=== PATIENT | male | born 1945 | race Caucasian/White ===

== ENCOUNTER 2019-08-31 07:11 | Day surgery (SDC) | payer OTHER ==
[~2019-08-31] VITALS: Ht 167.6 cm; Wt 71.0 kg
[~2019-08-31 07:11] MED LIST: ALEN70TA6 PO; METO25TA35 PO; ONDA4TAB7 PO; OXYC-306 PO
[2019-08-31] MEDS ORDERED: LACTATED RINGERS 1,000 ML IV SCH (07:45)
[2019-08-31 07:47] VITALS: BP 165/101
[2019-08-31] MEDS ORDERED: MAGNESIUM PO (07:54)
[2019-08-31] MEDS ORDERED: POTASSIUM PO (07:54)
[2019-08-31] MEDS ORDERED: LIDOCAINE-MPF 1%, 2ML INFIL ONE (08:00)
[2019-08-31] MEDS ORDERED: CHLORHEXIDINE 15 ML UDC MM ONE (08:00)
[2019-08-31] MEDS ORDERED: BUPIVACAINE/PF-EPI 0.5% 1:200K ONE (08:13)
[2019-08-31] MEDS ORDERED: FENTANYL PF 250 MCG/5ML ONE (08:26)
[2019-08-31] MEDS ORDERED: NEOSTIGMINE 1 MG/ML, 10ML ONE (08:29)
[2019-08-31] MEDS ORDERED: ROCURONIUM 10MG/ML,5ML ONE (08:29)
[2019-08-31] MEDS ORDERED: GLYCOPYRROLATE 0.2MG/1ML, 5ML ONE (08:29)
[2019-08-31] MEDS ORDERED: PROPOFOL 10 MG/ML, 20ML ONE (08:29)
[2019-08-31] MEDS ORDERED: CEFAZOLIN 1,000 MG ONE (08:29)
[2019-08-31] MEDS ORDERED: GABAPENTIN 300 MG CAPSULE PO ONE (08:30)
[2019-08-31] MEDS ORDERED: ACETAMINOPHEN 500 MG TABLET PO ONE (08:30)
[2019-08-31] MEDS ORDERED: LABETALOL 5MG/ML, 20ML IV PRN (09:00)
[2019-08-31] MEDS ORDERED: hydrALAzine 20 MG/ML, 1ML IV PRN (09:00)
[2019-08-31] MEDS ORDERED: OXYcodone 5 MG/5 ML ORAL.SOL UDC PO PRN (09:00)
[2019-08-31] MEDS ORDERED: morphine SULFATE 10 MG/ML, 1ML IVPush PRN (09:00)
[2019-08-31] MEDS ORDERED: HYDROmorphone 1 MG/ML, 1ML INJ IVPush PRN (09:00)
[2019-08-31] MEDS ORDERED: PROMETHAZINE 25 MG/ML, 1ML IVPush PRN (09:00)
[2019-08-31] MEDS ORDERED: HALOPERIDOL 5 MG/ML IV PRN (09:00)
[2019-08-31] MEDS ORDERED: MEPERIDINE/PF 25MG/0.5ML IVPush PRN (09:00)
[2019-08-31] MEDS ORDERED: FENTANYL PF 100 MCG/2ML IV PRN (09:00)
[2019-08-31] MEDS ORDERED: PHENYLEPHRINE 10 MG/ML ONE (10:17)
[2019-08-31] MEDS ORDERED: ONDANSETRON 2MG/ML, 2ML ONE (12:35)
[2019-08-31] MEDS ORDERED: ONDANSETRON 2MG/ML, 2ML IVPush PRN (13:00)
== END 2019-08-31 14:45 | disposition home or self-care (01) ==
LOC: OR 07:11 → OUT 14:45
PROVIDERS: ATTEND Surgery
DX: K40.90 Unilateral inguinal hernia, without obstruction or gangrene, not specified as recurrent (principal); D17.79 Benign lipomatous neoplasm of other sites; Z79.899 Other long term (current) drug therapy; Z85.46 Personal history of malignant neoplasm of prostate; Z88.0 Allergy status to penicillin; Z90.49 Acquired absence of other specified parts of digestive tract; Z90.79 Acquired absence of other genital organ(s); Z80.8 Family history of malignant neoplasm of other organs or systems
CPT/HCPCS: 49505; 93005; C1781; J0690; J2370; J2405; J2704; J2710; J3010; J7120